=== PATIENT | male | born 1980 | race Caucasian/White ===

== ENCOUNTER 2021-02-04 14:38 | Emergency (ER) | payer OTHER ==
[~2021-02-04] VITALS: Ht 167.6 cm; Wt 63.5 kg
[2021-02-04 14:42] VITALS: BP 115/71
--- NOTE | 2021-02-04 14:42 | NUR ---
pt wheelchair to imaging
--- NOTE | 2021-02-04 14:46 | NUR ---
40 Y/O MALE C/O BODY [place] X30 MIN AGO. PT WAS WORKING ON THE HEATER AND "EXPLOPED" ON THE PT. REDNESS NOTED TO LT ARM AND LT SIDE OF FACE. PT STATES 10/10 PAIN. MEDHX: "PORTAL VEIN CLOT" HOME MEDS: METOPROLOL AMD PROPANOLOL NKA
[2021-02-04] MEDS ORDERED: NACL 0.9% 1,000 ML IV ONE (14:50)
[2021-02-04] MEDS ORDERED: fentaNYL citrate 0.05 MG/ML VIAL IVP ONE (14:50)
[2021-02-04] MEDS ORDERED: KETOROLAC 30 MG/ML VIAL IVP ONE (15:00)
--- NOTE | 2021-02-04 15:04 | NUR ---
Blood sample collected, walked to lab and handed to CPT Nida
[2021-02-04] MEDS ORDERED: FLUORESCEIN OPTH STRIP 1 MG ONE (15:12)
[2021-02-04] MEDS ORDERED: TETRACAINE HCL/PF 0.5% OPTH 4 ML BTL ONE ×2 (15:12→15:13)
[2021-02-04 15:17] LABS: BASOPHILS % (AUTO) 0.3 % (0.0-2.0); EOSINOPHILS # (AUTO) 0.2 K/uL (0-0.4); EOSINOPHILS % (AUTO) 3.9 % (0.0-4.0); HEMATOCRIT 42.7 % (36-52); HEMOGLOBIN 14.8 g/dL (12.0-18.0); LYMPHOCYTES # (AUTO) 0.5 K/uL (2.0-11.5); LYMPHOCYTES % (AUTO) 10.8 % (20.5-51.1); MEAN CORPUSCULAR HEMOGLOBIN 33 pg (27-31); MEAN CORPUSCULAR HGB CONC 35 g/dL (33-37); MEAN CORPUSCULAR VOLUME 96.4 fL (80-94); MONOCYTES # (AUTO) 0.3 K/uL (0.8-1.0); MONOCYTES % (AUTO) 6.8 % (1.7-9.3); NEUTROPHILS # (AUTO) 3.5 K/uL (1.8-7.7); NEUTROPHILS % (AUTO) 78.2 % (42.2-75.2); PLATELET COUNT (AUTO) 134 K/uL (140-450); RED BLOOD CELL COUNT(AUTO) 4.43 MIL/uL (4.20-6.10); RED CELL DISTRIBUTION WIDTH 13.7 % (11.6-13.7); WHITE BLOOD COUNT (AUTO) 4.5 K/uL (4.8-10.8)
[2021-02-04 15:31] LABS: ANION GAP 13.6 (8-16); CARBON DIOXIDE 30.2 mmol/L (21-32); CREATININE 1.1 mg/dL (0.6-1.3)
[2021-02-04] MEDS ORDERED: MORPHINE SULFATE 4 MG/ML SYR IVP ONE (15:35)
[2021-02-04 15:39] LABS: POTASSIUM 2.8 mmol/L (3.5-5.1)
[2021-02-04] MEDS ORDERED: POTASSIUM CHLORIDE 10 MEQ TABER PO ONE (15:40)
--- NOTE | 2021-02-04 15:43 | NUR ---
Patient to be transferred to [facility]. Is being transferred due to [facility]. Receiving facility has accepting physician and available space. ER physician has signed transfer form. Patient or responsible democrat has agreed to transfer and signed form. Patient belongings inventoried and will be sent with patient. Copy of nursing notes, lab reports, EKG, Physicians Orders and X-rays to be sent with patient. Report called to DENISSE HODGES at receiving facility. [facility] ambulance service has been called for transfer. ETA is 30MIN.
[2021-02-04] MEDS ORDERED: HYDROcodone/APAP 5/325 MG 1 TAB TAB PO ONE (17:35)
[2021-02-04] MEDS ORDERED: NAPR-54 PO (17:41)
[2021-02-04] MEDS ORDERED: BACI1PAC6 TP (17:41)
[2021-02-04] MEDS ORDERED: ACET-8386 PO (17:41)
[2021-02-04 18:17] VITALS: BP 125/81
--- NOTE | 2021-02-04 18:17 | NUR ---
Patient discharged with v/s stable. Written and verbal after care instructions given and explained. Patient alert, oriented and verbalized understanding of instructions. Ambulatory with steady gait. All questions addressed prior to discharge. ID band removed. IV Discontinued. Patient advised to follow up with PMD. Rx of HYDROCODONE-ACETAMINOPHEN, BACITRACIN OINT, AND NAPROSYN given. Patient educated on indication of medication including possible reaction and side effects. Opportunity to ask questions provided and answered.
== END 2021-02-04 18:17 | disposition home or self-care (01) ==
LOC: MED 14:38
DX: T20.20XA Burn of second degree of head, face, and neck, unspecified site, initial encounter (principal); T23.202A Burn of second degree of left hand, unspecified site, initial encounter
CPT/HCPCS: 16020; 36415; 71045; 80048; 85025; 96361; 96374; 96375; 99291; J1885; J2270; J3010; J7030

== ENCOUNTER 2022-09-29 08:38 | Emergency (ER) | payer OTHER ==
[~2022-09-29] VITALS: Ht 167.6 cm; Wt 61.2 kg
[~2022-09-29 08:38] MED LIST: ACET-8905 PO; BACI-418 TP; NAPR-54 PO
[2022-09-29 08:46] VITALS: BP 108/72; PULSE 75; RESP 16; TEMP 97.3; O2SAT 98
[2022-09-29] MEDS ORDERED: ACETAMINOPHEN 325 MG TAB PO ONE (10:35)
[2022-09-29 12:26] VITALS: BP 114/81; PULSE 64; RESP 14; TEMP 97.8; O2SAT 100
== END 2022-09-29 12:29 | disposition home or self-care (01) ==
LOC: MED 08:38
DX: S16.1XXA Strain of muscle, fascia and tendon at neck level, initial encounter (principal); I10 Essential (primary) hypertension; Z90.49 Acquired absence of other specified parts of digestive tract; Z79.899 Other long term (current) drug therapy; V89.2XXA Person injured in unspecified motor-vehicle accident, traffic, initial encounter; Y93.89 Activity, other specified; Y92.89 Other specified places as the place of occurrence of the external cause; Y99.8 Other external cause status
CPT/HCPCS: 72040; 99283

== ENCOUNTER 2022-10-31 10:33 | Emergency (ER) | payer OTHER ==
[~2022-10-31] VITALS: Ht 167.6 cm; Wt 72.6 kg
[2022-10-31 10:57] VITALS: BP 100/59; PULSE 61; RESP 18; TEMP 97.8; O2SAT 98
[2022-10-31 13:14] VITALS: BP 100/59; PULSE 61; RESP 18; TEMP 97.8; O2SAT 98
== END 2022-10-31 13:14 | disposition home or self-care (01) ==
LOC: MED 10:33
DX: S83.8X1A Sprain of other specified parts of right knee, initial encounter (principal); X58.XXXA Exposure to other specified factors, initial encounter; Y93.89 Activity, other specified; Y92.89 Other specified places as the place of occurrence of the external cause; Y99.8 Other external cause status
CPT/HCPCS: 29505; 99283